=== PATIENT | female | born 1960 | race Caucasian/White ===

== ENCOUNTER → 2018-03-18 | Outpatient (CLI) | payer BC ==
[~2018-03-18] MED LIST: APAP500 PO; ASPIR-TRIN325 MG PO; BACTRIM DS TAB1 EACH PO; CLEOCIN HCL150 MG PO; COLACE100 MG PO; CYCLOBENZAPRINE5 MG PO; CYMBALTA30 MG PO; EXCEDRIN CAPLE1 EACH PO; HYDROCHLOROTHIA25 M2 PO; IBUPROFEN 800800 M1; KEFLEX500 MG PO; METAMUCIL PAC1 UDPKT PO; MOM PO; NORCO 5-325 TA1 EACH PO; OXYCODONE HCL 55 MG PO; OXYCONTIN10 M1 PO; PERCOCET PO; PROAIR HFA8.5 GM INH; PROZAC 20 MG20 MG; SILVADENE20 GM TP; STEROID INJECTION IM; TRAMADOL 50 MG50 MG PO; XARELTO10 MG PO
== END ==
LOC: M.RAD 12:17
DX: Z12.31 Encounter for screening mammogram for malignant neoplasm of breast (principal)

== ENCOUNTER → 2021-02-14 | Outpatient (CLI) | payer BC | LOC: M.LAB 05:15 | PROVIDERS: ATTEND Anesthesiology | DX: E87.6 Hypokalemia (principal) ==